=== PATIENT | female | born 1975 | race Caucasian/White ===

== ENCOUNTER 2017-06-09 12:41 | Emergency (ER) | payer MEDICAID ==
[~2017-06-09] VITALS: Ht 177.8 cm; Wt 147.0 kg
[~2017-06-09 12:41] MED LIST: ASPI-1265 PO; HUM7525 SQ; LANTUS SQ; METF500T4 PO
[2017-06-09] MEDS ORDERED: IBUP-1984 PO (13:10)
[2017-06-09] MEDS ORDERED: LEVO500T2 PO (13:10)
[2017-06-09] MEDS ORDERED: dexamethasone sod phosphate 10mg/ml inj IM STA (13:32)
[2017-06-09] MEDS ORDERED: ketorolac trometh inj. 60 MG/2 ML VIAL IM ONE (13:35)
[2017-06-09 13:46] VITALS: BP 198/74
== END 2017-06-09 13:48 | disposition home or self-care (01) ==
LOC: ER 12:41
DX: J32.1 Chronic frontal sinusitis (principal); J32.0 Chronic maxillary sinusitis; E11.9 Type 2 diabetes mellitus without complications; Z88.0 Allergy status to penicillin; Z88.6 Allergy status to analgesic agent
CPT/HCPCS: 96372; 99284; J1100; J1885

== ENCOUNTER 2017-06-20 13:41 | Emergency (ER) | payer MEDICAID ==
[~2017-06-20] VITALS: Ht 177.8 cm; Wt 147.3 kg
[~2017-06-20 13:41] MED LIST changes: +IBUP-1984 PO; +LEVO500T2 PO
[2017-06-20 17:05] VITALS: BP 125/71
== END 2017-06-20 17:08 | disposition home or self-care (01) ==
LOC: ER 13:42
DX: S09.90XA Unspecified injury of head, initial encounter (principal); E11.9 Type 2 diabetes mellitus without complications; Z90.49 Acquired absence of other specified parts of digestive tract; Z88.0 Allergy status to penicillin; Z79.4 Long term (current) use of insulin; Z79.82 Long term (current) use of aspirin; W01.0XXA Fall on same level from slipping, tripping and stumbling without subsequent striking against object, initial encounter; Y93.89 Activity, other specified; Y92.89 Other specified places as the place of occurrence of the external cause; Y99.8 Other external cause status
CPT/HCPCS: 70450; 72125; 99284

== ENCOUNTER 2019-11-21 14:53 | Day surgery (SDC) | payer MEDICAID ==
[2019-11-17 11:08] LABS: BASOPHILS % (AUTO) 0.7 % (0-1); EOSINOPHILS # (AUTO) 0.2 X10'3 (0-0.9); EOSINOPHILS % (AUTO) 2.7 % (0-6); HEMATOCRIT 38.2 % (35.0-45.0); HEMOGLOBIN 11.9 g/dl (12.0-16.0); LYMPHOCYTES # (AUTO) 1.2 X10'3 (1.1-4.8); MEAN CORPUSCULAR HEMOGLOBIN 24.6 PG (27.0-31.0); MEAN CORPUSCULAR HGB CONC 31.1 g/dL (33.0-36.5); MEAN CORPUSCULAR VOLUME 79.2 FL (78-98); MEAN PLATELET VOLUME 8.6 FL (7.4-10.4); MONOCYTES # (AUTO) 0.6 X10'3 (0-0.9); MONOCYTES % (AUTO) 8.1 % (2-12); NEUTROPHILS # (AUTO) 5.1 X10'3 (1.8-7.7); NEUTROPHILS % (AUTO) 71.5 % (42-75); PLATELET COUNT 232 X10'3 (140-440); RED BLOOD COUNT 4.82 X10'6 (4.20-5.60); RED CELL DISTRIBUTION WIDTH 17.5 % (11.5-14.5); WHITE BLOOD COUNT 7.1 X10'3 (4.5-11.0)
[2019-11-17 11:18] LABS: ANION GAP 8 (8-16); BLOOD UREA NITROGEN 12 MG/DL (7-18); BUN/CREATININE RATIO 13.8 (6.6-38.0); CALCIUM 8.9 MG/DL (8.5-10.1); CHLORIDE 103 MMOL/L (99-107); CREATININE 0.87 MG/DL (0.40-0.90); GLUCOSE 139 MG/DL (70-104); POTASSIUM 4.1 MMOL/L (3.5-5.1); SODIUM 137 MMOL/L (135-145); TOTAL CARBON DIOXIDE 26.3 MMOL/L (24-32); eGFR 70 ML/MIN
[2019-11-17 11:22] LABS: PARTIAL THROMBOPLASTIN TIME 30 SECONDS (22-32)
[2019-11-21] VITALS (11 sets, daily range): BP systolic 140–166; BP diastolic 63–83
[~2019-11-21] VITALS: Ht 177.8 cm; Wt 146.0 kg
[~2019-11-21 14:53] MED LIST changes: -IBUP-1984 PO; -LEVO500T2 PO; +METF-436 PO; -METF500T4 PO
[2019-11-21] MEDS ORDERED: MIDAZolam 1mg/ml 10ml vial IV ONE (15:10)
[2019-11-21] MEDS ORDERED: normal saline 1000ml 1,000 ML IV SCH (15:10)
[2019-11-21] MEDS ORDERED: fentaNYL/PF 50MCG/1 ML 2ML syringe IV ONE (15:10)
[2019-11-21] MEDS ORDERED: EMPA1TAB PO (16:58)
[2019-11-21] MEDS ORDERED: APIX5TAB3 PO (16:58)
[2019-11-21] MEDS ORDERED: FLEC100T35 PO (16:59)
== END 2019-11-21 19:00 | disposition home or self-care (01) ==
LOC: SSTAY O 14:53
PROVIDERS: ATTEND Internal Medicine Interventional Cardiology
DX: I48.91 Unspecified atrial fibrillation (principal); E66.9 Obesity, unspecified; E11.9 Type 2 diabetes mellitus without complications; I10 Essential (primary) hypertension; Z88.0 Allergy status to penicillin; Z88.6 Allergy status to analgesic agent; E66.01 Morbid (severe) obesity due to excess calories; Z79.899 Other long term (current) drug therapy; Q21.2 Atrioventricular septal defect
CPT/HCPCS: 36415; 80048; 85025; 85610; 85730; 92960; 94760; J2250; J3010; J7030; 93005

== ENCOUNTER 2023-11-20 09:21 | Outpatient (CLI) | payer MEDICAID ==
[~2023-11-20] VITALS: Ht 177.8 cm; Wt 154.2 kg
[~2023-11-20 09:21] MED LIST changes: +APIX5TAB3 PO; -ASPI-1265 PO; +EMPA1TAB PO; +FLEC100T35 PO; -HUM7525 SQ; -LANTUS SQ; -METF-436 PO
[2023-11-20 10:04] VITALS: PULSE 94; RESP 16; O2SAT 96
[2023-11-20 10:15] VITALS: PULSE 94; RESP 16
[2023-11-20] MEDS: albuterol 2.5 MG/3 ML nebule NEB ONE (10:23)
== END 2023-11-20 23:59 | disposition home or self-care (01) ==
LOC: RT 09:21
PROVIDERS: ATTEND Student in an Organized Health Care Education/Training Program
DX: R06.02 Shortness of breath (principal)
CPT/HCPCS: 94060; 94729; 94760

== ENCOUNTER 2024-07-05 09:50 | Day surgery (SDC) | payer MEDICAID ==
[2024-07-01 15:41] LABS: BASOPHILS # (AUTO) 0.1 X10'3 (0-0.2); BASOPHILS % (AUTO) 0.8 % (0-1); EOSINOPHILS # (AUTO) 0.1 X10'3 (0-0.9); EOSINOPHILS % (AUTO) 1.7 % (0-6); HEMATOCRIT 42.4 % (35.0-45.0); LYMPHOCYTES # (AUTO) 1.2 X10'3 (1.1-4.8); LYMPHOCYTES % (AUTO) 17.4 % (21-51); MEAN CORPUSCULAR HEMOGLOBIN 29.5 PG (27.0-31.0); MEAN CORPUSCULAR VOLUME 89.3 FL (78-98); MEAN PLATELET VOLUME 9.3 FL (7.4-10.4); MONOCYTES # (AUTO) 0.6 X10'3 (0-0.9); MONOCYTES % (AUTO) 8.8 % (2-12); NEUTROPHILS % (AUTO) 71.3 % (42-75); PLATELET COUNT 209 X10'3 (140-440); RED BLOOD COUNT 4.75 X10'6 (4.20-5.60); RED CELL DISTRIBUTION WIDTH 14.4 % (11.5-14.5)
[2024-07-01 15:52] LABS: APTT 29 SECONDS (22-32); INR 1.1 INR; PROTHROMBIN TIME 11.1 SECONDS (9.0-12.0)
[2024-07-01 15:53] LABS: ALBUMIN 3.2 G/DL (3.4-5.0); ANION GAP 5 (8-16); BLOOD UREA NITROGEN 12 MG/DL (7-18); BUN/CREATININE RATIO 15.8 (10.0-20.0); CALCIUM 9.1 MG/DL (8.5-10.1); CHLORIDE 99 MMOL/L (99-107); CHOL/HDL RATIO 3.9 (0.00-4.99); CHOLESTEROL 168 MG/DL (0-200); CREATININE 0.76 MG/DL (0.40-0.90); GLUCOSE 356 MG/DL (70-104); HDL CHOLESTEROL 43 MG/DL (35-60); LDL CHOLESTEROL 110 MG/DL (50-100); POTASSIUM 4.5 MMOL/L (3.5-5.1); SODIUM 134 MMOL/L (135-145); TOTAL CARBON DIOXIDE 30.5 MMOL/L (24-32); TRIGLYCERIDES 84 MG/DL (20-135); eGFR 81 ML/MIN
[~2024-07-05] VITALS: Ht 177.8 cm; Wt 165.5 kg
[2024-07-05] VITALS (12 sets, daily range): BP systolic 101–152; BP diastolic 64–104; PULSE 89–131; RESP 12–22; TEMP 97.9; O2SAT 92–98
[2024-07-05] MEDS ORDERED: LANTUS SQ (10:27)
[2024-07-05] MEDS ORDERED: GABA300C PO (10:27)
[2024-07-05] MEDS ORDERED: LOSA50TA64 PO (10:27)
[2024-07-05] MEDS ORDERED: ROSU10TA72 PO (10:27)
[2024-07-05] MEDS ORDERED: SOTA80TA73 PO (10:27)
[2024-07-05] MEDS ORDERED: INSU100I7 SQ (10:27)
[2024-07-05] MEDS ORDERED: EMPA25TA (10:27)
[2024-07-05] MEDS ORDERED: METO-395 PO (10:27)
[2024-07-05] MEDS ORDERED: EMPA10TA PO (10:27)
[2024-07-05] MEDS ORDERED: HYDR-3686 PO (10:27)
[2024-07-05] MEDS: MIDAZolam 1mg/ml 10ml vial IV ONE (12:53)
[2024-07-05] MEDS: fentaNYL/PF 50MCG/1 ML 2ML syringe IV ONE (12:54)
[2024-07-05] MEDS: normal saline 1000ml 1,000 ML IV SCH (12:54)
== END 2024-07-05 14:10 | disposition home or self-care (01) ==
LOC: SSTAY O 09:50
PROVIDERS: ATTEND Student in an Organized Health Care Education/Training Program
DX: I48.91 Unspecified atrial fibrillation (principal); Z79.899 Other long term (current) drug therapy; Z88.0 Allergy status to penicillin; Z88.6 Allergy status to analgesic agent; Z88.8 Allergy status to other drugs, medicaments and biological substances; E66.01 Morbid (severe) obesity due to excess calories; E11.9 Type 2 diabetes mellitus without complications; Z79.4 Long term (current) use of insulin; Q21.20 Atrioventricular septal defect, unspecified as to partial or complete
CPT/HCPCS: 36415; 80048; 80061; 82948; 85025; 85610; 85730; 92960; J2250; J3010; J7030